=== PATIENT | female | born 1950 | race Caucasian/White ===

== ENCOUNTER → 2020-10-16 | Outpatient (CLI) | payer OTHER ==
[~2020-10-16] MED LIST: ASPIRIN EC81 MG PO; BUSPIRONE HCL7.5 MG PO; CALCIUM600 MG PO; CLARITIN10 M2 PO; CYANOCOBAL1000 MCG/1 INJ; FLAGYL500 MG PO; OMNICEF 300 MG300 MG PO; PRAVACHOL40 MG PO; PROAMATINE 2.52.5 MG PO; SODIUM CHLORIDE1 G1 PO; VITAMIN D21250 MCG PO
== END ==
LOC: KOH-I 15:19
DX: I82.502 Chronic embolism and thrombosis of unspecified deep veins of left lower extremity (principal); D50.9 Iron deficiency anemia, unspecified; K90.9 Intestinal malabsorption, unspecified; R22.42 Localized swelling, mass and lump, left lower limb
CPT/HCPCS: 93971

== ENCOUNTER → 2020-11-12 | Outpatient (CLI) | payer OTHER ==
[~2020-11-12] VITALS: Ht 137.2 cm; Wt 44.5 kg
== END ==
LOC: OPSV 12:36
DX: M81.0 Age-related osteoporosis without current pathological fracture (principal)
CPT/HCPCS: 96372

== ENCOUNTER → 2021-02-26 | Outpatient (CLI) | payer OTHER ==
[~2021-02-26] VITALS: Ht 147.3 cm; Wt 44.9 kg
== END ==
LOC: OPSV 11:00
DX: K50.80 Crohn's disease of both small and large intestine without complications (principal)
CPT/HCPCS: 96365; J3380; J7050

== ENCOUNTER → 2021-03-12 | Outpatient (CLI) | payer OTHER ==
[~2021-03-12] VITALS: Ht 147.3 cm; Wt 44.9 kg
== END ==
LOC: OPSV 11:00
DX: K50.80 Crohn's disease of both small and large intestine without complications (principal); D50.9 Iron deficiency anemia, unspecified; I10 Essential (primary) hypertension; Z79.899 Other long term (current) drug therapy; Z88.1 Allergy status to other antibiotic agents; Z88.0 Allergy status to penicillin; Z88.5 Allergy status to narcotic agent
CPT/HCPCS: 96365

== ENCOUNTER → 2021-04-09 | Outpatient (CLI) | payer OTHER ==
[~2021-04-09] VITALS: Ht 147.3 cm; Wt 44.9 kg
== END ==
LOC: OPSV 11:00
DX: K50.80 Crohn's disease of both small and large intestine without complications (principal)
CPT/HCPCS: 96365; J1642; J3380; J7050

== ENCOUNTER → 2021-06-04 | Outpatient (CLI) | payer OTHER ==
[2021-06-11 11:14] LABS: ANTI-VEDOLIZUMAB ANTIBODY <25 ng/mL (.); VEDOLIZUMAB 5.7 ug/mL (.)
== END ==
LOC: OPSV 10:39
PROVIDERS: Internal Medicine Gastroenterology
DX: K50.812 Crohn's disease of both small and large intestine with intestinal obstruction (principal)
CPT/HCPCS: 36415; 80299; 82397; 96365; 96375; J2930; J3380; J7050

== ENCOUNTER → 2021-08-12 | Outpatient (CLI) | payer OTHER ==
[~2021-08-12] VITALS: Ht 147.3 cm; Wt 44.9 kg
== END ==
LOC: OPSV 08-06 11:00
DX: K50.80 Crohn's disease of both small and large intestine without complications (principal)
CPT/HCPCS: 96365; 96375; J2930; J3380; J7050

== ENCOUNTER → 2021-10-07 | Outpatient (CLI) | payer OTHER ==
[~2021-10-07] VITALS: Ht 147.3 cm; Wt 44.9 kg
== END ==
LOC: OPSV 12:14
DX: K50.80 Crohn's disease of both small and large intestine without complications (principal)
CPT/HCPCS: 96365; J3380; J7050

== ENCOUNTER → 2021-10-26 | Outpatient (CLI) | payer OTHER ==
[~2021-10-26] VITALS: Ht 147.3 cm; Wt 44.9 kg
== END ==
LOC: OPSV 13:51
DX: M81.0 Age-related osteoporosis without current pathological fracture (principal)
CPT/HCPCS: 96372

== ENCOUNTER → 2021-12-02 | Outpatient (CLI) | payer OTHER ==
[~2021-12-02] VITALS: Ht 147.3 cm; Wt 44.9 kg
== END ==
LOC: OPSV 13:00
DX: K50.80 Crohn's disease of both small and large intestine without complications (principal)
CPT/HCPCS: 96365; J3380; J7050

== ENCOUNTER → 2022-01-27 | Outpatient (CLI) | payer OTHER ==
[~2022-01-27] VITALS: Ht 147.3 cm; Wt 44.9 kg
== END ==
LOC: OPSV 13:00
DX: K50.80 Crohn's disease of both small and large intestine without complications (principal)
CPT/HCPCS: 96365; 96375; J2930; J3380; J7050

== ENCOUNTER → 2022-03-24 | Outpatient (CLI) | payer OTHER ==
[~2022-03-24] VITALS: Ht 147.3 cm; Wt 44.9 kg
== END ==
LOC: OPSV 10:50
DX: K50.90 Crohn's disease, unspecified, without complications (principal)
CPT/HCPCS: 96365; J2930; J3380; J7050